=== PATIENT | female | born 1965 | race Caucasian/White ===

== ENCOUNTER 2017-01-22 17:42 | Emergency (ER) | payer MEDICAID ==
[~2017-01-22] VITALS: Ht 157.5 cm; Wt 55.0 kg
[2017-01-22] MEDS ORDERED: IBUPROFEN 600MG TABLET PO ONE (18:45)
[2017-01-22] MEDS ORDERED: HYDROCODONE/ACETAMINOPHEN 5/325MG TABLET PO PRN (19:15)
[2017-01-22 21:27] LABS: CHLORIDE 101 mEq/L (98-107); INDEX HEMOLYSI 1 (1-3); INDEX ICTERIC 1 (1-4); INDEX LIPEMIC 1 (1-3)
[2017-01-22 21:32] LABS: BASOPHILS % 0.3 % (0.0-2.0); EOSINOPHILS % 2.5 % (0.0-5.0); HEMATOCRIT. 37.2 % (36.0-48.0); HEMOGLOBIN. 12.6 g/dL (12.0-16.0); LYMPHOCYTES % 25.6 % (20.0-50.0); MEAN CORPUSCULAR HEMOGLOBIN 31.5 pg (28.0-32.0); MEAN CORPUSCULAR HGB CONC 33.8 g/dL (31.0-37.0); MEAN CORPUSCULAR VOLUME 93.1 fL (81.0-99.0); MEAN PLATELET VOLUME 9.1 fl (7.4-10.4); MONOCYTES % 6.6 % (2.0-8.0); PLATELET 158 x1000/uL (130-400); RED BLOOD CELL COUNT 3.99 mill/uL (4.2-5.4); RED CELL DISTRIBUTION WIDTH 13.4 % (11.6-14.6); WHITE BLOOD COUNT 8.1 x1000/uL (4.5-11.0)
[2017-01-22 21:33] LABS: ANION GAP 13; CALCIUM 8.4 mg/dL (8.5-10.1); CARBON DIOXIDE 29 mEq/L (21-32); UREA NITROGEN BLOOD 18 mg/dL (7-21); eGFR > 60 mL/min (>60)
[2017-01-22] MEDS ORDERED: HYDROCODONE/ACETAMINOPHEN 5/325MG TABLET PO ONE (23:30)
[2017-01-22] MEDS ORDERED: CEPHALEXIN 500MG CAPSULE PO ONE (23:30)
[2017-01-22 23:52] VITALS: BP 168/92
== END 2017-01-23 00:01 | disposition home or self-care (01) ==
LOC: ER 17:45
DX: S81.012A Laceration without foreign body, left knee, initial encounter (principal); I69.351 Hemiplegia and hemiparesis following cerebral infarction affecting right dominant side; E11.9 Type 2 diabetes mellitus without complications; Z79.4 Long term (current) use of insulin; W01.0XXA Fall on same level from slipping, tripping and stumbling without subsequent striking against object, initial encounter; Y93.89 Activity, other specified; Y99.8 Other external cause status; Y92.89 Other specified places as the place of occurrence of the external cause
CPT/HCPCS: 36415; 73562; 80048; 85025; 99285; L1830

== ENCOUNTER 2022-11-05 08:34 | Inpatient (IN) | payer MEDICAID ==
[~2022-11-05] VITALS: Ht 167.6 cm; Wt 79.8 kg
[2022-11-05] MEDS ORDERED: VISCOUS LIDOCAINE 2% 15 ML UDC PO ONE (09:00)
[2022-11-05] MEDS ORDERED: ONDANSETRON 4MG ODT PO ONE (09:00)
[2022-11-05] MEDS ORDERED: MAGNESIUM/ALUMINUM HYDROXIDE/SIMETHICONE 30ML UDC PO ONE (09:00)
[2022-11-05 09:53] LABS: BASOPHILS % 0.6 % (0.0-2.0); EOSINOPHILS % 0.8 % (0.0-5.0); HEMATOCRIT. 39.7 % (36.0-48.0); HEMOGLOBIN. 12.9 g/dL (12.0-16.0); LYMPHOCYTES % 20.3 % (20.0-50.0); MEAN CORPUSCULAR HEMOGLOBIN 30.4 pg (28.0-32.0); MEAN CORPUSCULAR VOLUME 93.8 fL (81.0-99.0); MEAN PLATELET VOLUME 9.3 fl (7.4-10.4); MONOCYTES % 7.8 % (2.0-8.0); NEUTROPHILS % 70.5 % (40.0-76.0); PLATELET 181 x1000/uL (130-400); RED BLOOD CELL COUNT 4.23 mill/uL (4.2-5.4); RED CELL DISTRIBUTION WIDTH 18.7 % (11.6-14.6)
[2022-11-05 09:54] LABS: CHLORIDE 102 mEq/L (98-107)
[2022-11-05] MEDS: SODIUM CHLORIDE 0.9% 1,000 ML IV ONE ×2 (10:15→15:34)
[2022-11-05] MEDS ORDERED: VISCOUS LIDOCAINE 2% 15 ML UDC PO NR (15:00)
[2022-11-05] MEDS ORDERED: MAGNESIUM/ALUMINUM HYDROXIDE/SIMETHICONE 30ML UDC PO NR (15:00)
[2022-11-05] MEDS ORDERED: ONDANSETRON 4MG ODT PO NR (15:00)
[2022-11-05] MEDS ORDERED: GUAIFENESIN 200MG/10ML SUGAR FREE UDC PO PRN (16:30)
[2022-11-05] MEDS ORDERED: CLONIDINE 0.1MG TABLET PO PRN (16:30)
[2022-11-05] MEDS ORDERED: IPRATROPIUM/ALBUTEROL 0.5-3(2.5)MG/3ML NEB HHN PRN (16:30)
[2022-11-05] MEDS: FUROSEMIDE 40MG/4ML VIAL IV SCH (16:30)
[2022-11-05] MEDS ORDERED: ACETAMINOPHEN 325MG TABLET PO PRN ×2 (16:30)
[2022-11-05] MEDS ORDERED: ALBUTEROL (0.083%) 2.5MG/3ML NEB HHN PRN (17:00)
[2022-11-05] MEDS ORDERED: IPRATROPIUM BROMIDE (0.02%) 0.5MG/2.5ML NEB HHN PRN (17:00)
[2022-11-05] MEDS: ENOXAPARIN 40MG/0.4ML SYR SUBCUT SCH (17:50)
[2022-11-05] MEDS ORDERED: SODIUM POLYSTYRENE SULFONATE 15 G/60 ML BOT PO NR (18:30)
[2022-11-05 19:20] VITALS: BP 130/76
[2022-11-05 20:00] VITALS: BP 146/83
[2022-11-05] MEDS: PANTOPRAZOLE 40MG DR TABLET PO SCH (22:20)
[2022-11-05] MEDS: ATORVASTATIN CALCIUM 20MG TABLET PO SCH (22:20)
[2022-11-06] VITALS: BP 138/69
[2022-11-06] MEDS ORDERED: CARV25TA47 PO (03:03)
[2022-11-06] MEDS ORDERED: PANT40TA51 PO (03:03)
[2022-11-06] MEDS ORDERED: FERR325T6 PO (03:03)
[2022-11-06] MEDS ORDERED: CLOP75TA33 PO (03:03)
[2022-11-06] MEDS ORDERED: ASPI-1079 PO (03:03)
[2022-11-06] MEDS ORDERED: FAMO20TA8 PO (03:03)
[2022-11-06] MEDS ORDERED: GLIP5TAB12 PO (03:03)
[2022-11-06] MEDS ORDERED: OMEP10CA5 MT (03:03)
[2022-11-06] MEDS ORDERED: LOSA50TA41 PO (03:03)
[2022-11-06 04:00] VITALS: BP 142/86
[2022-11-06 06:06] LABS: BASOPHILS % 0.5 % (0.0-2.0); EOSINOPHILS % 0.5 % (0.0-5.0); HEMATOCRIT. 37.2 % (36.0-48.0); HEMOGLOBIN. 12.2 g/dL (12.0-16.0); LYMPHOCYTES % 27.4 % (20.0-50.0); MEAN CORPUSCULAR HEMOGLOBIN 30.5 pg (28.0-32.0); MEAN CORPUSCULAR VOLUME 92.7 fL (81.0-99.0); MEAN PLATELET VOLUME 8.9 fl (7.4-10.4); MONOCYTES % 12.1 % (2.0-8.0); NEUTROPHILS % 59.5 % (40.0-76.0); PLATELET 158 x1000/uL (130-400); RED BLOOD CELL COUNT 4.01 mill/uL (4.2-5.4); RED CELL DISTRIBUTION WIDTH 18.1 % (11.6-14.6)
[2022-11-06 06:21] LABS: CHLORIDE 101 mEq/L (98-107)
[2022-11-06 06:36] LABS: HDL CHOLESTEROL 22 mg/dL (40-59); LDL CHOLESTEROL 46 mg/dL (5-100); T4 FREE 1.44 ng/dL (0.76-1.46)
[2022-11-06] MEDS: PANTOPRAZOLE 40MG DR TABLET PO SCH ×2 (07:03→21:33)
[2022-11-06 08:00] VITALS: BP 140/70
[2022-11-06] MEDS: FERROUS SULFATE 325MG TABLET PO SCH (09:41)
[2022-11-06] MEDS: FUROSEMIDE 40MG/4ML VIAL IV SCH (09:41)
[2022-11-06] MEDS: CLOPIDOGREL 75MG TABLET PO SCH (09:42)
[2022-11-06] MEDS: ASPIRIN 81MG EC TABLET PO SCH (09:42)
[2022-11-06 12:00] VITALS: BP 157/71
[2022-11-06 13:27] LABS: HEPATITIS B SURFACE ANTIGEN NEGATIVE
[2022-11-06 16:00] VITALS: BP 141/80
[2022-11-06] MEDS: ENOXAPARIN 40MG/0.4ML SYR SUBCUT SCH (18:08)
[2022-11-06 20:29] VITALS: BP 142/88
[2022-11-06] MEDS: ATORVASTATIN CALCIUM 20MG TABLET PO SCH (21:33)
[2022-11-07 00:34] VITALS: BP 156/89
[2022-11-07 04:00] VITALS: BP 145/84
[2022-11-07 05:51] LABS: HEMATOCRIT 36.3 % (36.0-48.0); HEMOGLOBIN 12.2 g/dL (12.0-16.0); MEAN CORPUSCULAR HEMOGLOBIN 31.4 pg (28.0-32.0); MEAN CORPUSCULAR VOLUME 93.1 fL (81.0-99.0); PLATELET 166 x1000/uL (130-400); RED CELL DISTRIBUTION WIDTH 18.1 % (11.6-14.6)
[2022-11-07] MEDS: PANTOPRAZOLE 40MG DR TABLET PO SCH (06:15)
[2022-11-07 08:40] VITALS: BP 151/89
[2022-11-07] MEDS: ASPIRIN 81MG EC TABLET PO SCH (08:41)
[2022-11-07] MEDS: CLOPIDOGREL 75MG TABLET PO SCH (08:42)
[2022-11-07] MEDS: FERROUS SULFATE 325MG TABLET PO SCH (08:42)
[2022-11-07] MEDS: FUROSEMIDE 40MG/4ML VIAL IV SCH (08:42)
[2022-11-07 08:50] LABS: CHLORIDE 100 mEq/L (98-107)
[2022-11-07 08:56] LABS: PHOSPHORUS 3.6 mg/dL (2.5-4.9)
[2022-11-07] MEDS ORDERED: LOSARTAN POTASSIUM 50 MG TABLET PO SCH (09:00)
[2022-11-07] MEDS ORDERED: GLIPIZIDE 5MG TABLET PO SCH (09:00)
[2022-11-07] MEDS ORDERED: MAGNESIUM 1 G PREMIX 100 ML IV SCH (10:00)
[2022-11-07] MEDS ORDERED: SPIRONOLACTONE 25MG TABLET PO SCH (10:30)
[2022-11-07 12:00] VITALS: BP 138/73
[2022-11-07 16:05] VITALS: BP 138/73
[2022-11-07] MEDS ORDERED: PANT40TA51 PO (16:30)
[2022-11-07] MEDS ORDERED: FURO-151 PO (16:30)
[2022-11-07] MEDS ORDERED: ATOR40TA70 MT (16:30)
[2022-11-07] MEDS ORDERED: SPIR25TA PO (16:30)
[2022-11-07] MEDS ORDERED: CARVEDILOL 3.125 MG TABLET PO SCH (21:00)
[2022-11-08] MEDS ORDERED: FAMOTIDINE 20MG TABLET PO SCH (09:00)
== END 2022-11-07 17:46 | disposition home or self-care (01) | DRG 194 ==
LOC: ER 08:34 → EDBEDREQ 10:51 → 7WST 14:47 → EDBEDREQTM 14:58 → EDBEDREQ 14:58
PROVIDERS: ADMIT Internal Medicine; ATTEND Internal Medicine
DX: I11.0 Hypertensive heart disease with heart failure (principal); I27.20 Pulmonary hypertension, unspecified; I42.9 Cardiomyopathy, unspecified; R18.8 Other ascites; I69.351 Hemiplegia and hemiparesis following cerebral infarction affecting right dominant side; I50.23 Acute on chronic systolic (congestive) heart failure; I25.10 Atherosclerotic heart disease of native coronary artery without angina pectoris; E87.5 Hyperkalemia; E11.9 Type 2 diabetes mellitus without complications; E78.5 Hyperlipidemia, unspecified; I08.1 Rheumatic disorders of both mitral and tricuspid valves; K21.9 Gastro-esophageal reflux disease without esophagitis; Z95.0 Presence of cardiac pacemaker; I25.2 Old myocardial infarction; Z79.02 Long term (current) use of antithrombotics/antiplatelets; Z91.14 Patient's other noncompliance with medication regimen
CPT/HCPCS: 36415; 71045; 74176; 76705; 80048; 80053; 80061; 83036; 83735; 83880; 84100; 84439; 84443; 84484; 85025; 85027; 85379; 86705; 86709; 86803; 87340; 93005; 93306; 93923; 93970; 97116; 97162; 97166; 97530; 99285; J1650; J1940; J3475; J7030; Q0162; A4315